=== PATIENT | female | born 1945 | race Caucasian/White ===

== ENCOUNTER 2016-09-16 05:51 | Emergency (ER) | payer OTHER ==
[2016-09-16] MEDS ORDERED: ASPIRIN PO STA (06:07)
[2016-09-16] MEDS ORDERED: NITROGLYCERIN SL ONE (06:17)
--- NOTE | 2016-09-16 06:17 | EKG Report ---
Test Performed on : 09/16/2016 06:07:15 AM Test Reason : CHEST PAIN Blood Pressure : / mmHG Vent. Rate : 094 BPM Atrial Rate : 094 BPM P-R Int : 148 ms QRS Dur : 140 ms QT Int : 386 ms P-R-T Axes : 057 022 -02 degrees QTc Int : 482 ms Normal sinus rhythm. Possible Left atrial enlargement Right bundle branch block T wave abnormality, consider inferior ischemia Abnormal ECG No previous ECGs available Unconfirmed Result
[2016-09-16] MEDS ORDERED: NITROGLYCERIN ONE (06:19)
[2016-09-16 06:20] LABS: MANUAL DIFF NEEDED? NO
[2016-09-16 06:21] LABS: BASO% 0.3 % (0.0-0.8); EOS# 0.09 X1000 (0.0-0.7); EOS% 1.4 % (0.0-10.0); HEMATOCRIT 42.1 % (37.0-47.0); HEMOGLOBIN 14.2 g/dL (12.0-16.0); LYMPH% 36.7 % (20.5-51.1); MCH 29.9 PG (27-31); MCHC 33.7 g/dL (33-37); MCV 88.6 FL (81-99); MONO# 0.57 X1000 (0.11-0.59); MONO% 9.1 % (1.7-9.3); MPV 12.5 FL (7.4-10.4); NEUT% 52.5 % (42.2-75.2); PLT 172 X1000 (130-400); RBC 4.75 XMIL (4.2-5.4)
[2016-09-16 06:37] LABS: ALBUMIN 4.4 g/dL (3.5-5.0); CALCIUM 9.8 mg/dL (8.8-10.2); MAGNESIUM 2.3 mg/dL (1.5-2.7); POTASSIUM 3.7 mmol/L (3.5-5.1); TOTAL BILIRUBIN 0.8 mg/dL (0.20-1.00)
[2016-09-16 06:55] LABS: INR 0.93 (0.86-1.15); PROTIME 12.8 Seconds (12.1-15.5)
[2016-09-16 06:56] LABS: PTT PL 40.3 Seconds (22.6-43.9)
--- NOTE | 2016-09-16 06:56 | PROVIDER DOCUMENTATION ---
HPI-Musculoskeletal Pain/Inj - GENERAL Chief Complaint: Extremity Pain Stated Complaint: ARM PAIN Time Seen by Provider: 09/16/16 06:03 Review of Systems - Adult - REVIEW OF SYSTEMS - ADULT Constitutional: reports: no symptoms reported Eyes: reports: no symptoms reported Ears, Nose, Mouth & Throat: reports: no symptoms reported Cardiovascular: reports: no symptoms reported Respiratory: reports: no symptoms reported Gastrointestinal: reports: no symptoms reported Genitourinary: reports: no symptoms reported Musculoskeletal: reports: no symptoms reported Integumentary: reports: no symptoms reported Neurological: reports: no symptoms reported Psychiatric: reports: no symptoms reported Endocrine: reports: no symptoms reported Hematologic/Lymphatic: reports: no symptoms reported Allergic/Immunologic: reports: no symptoms reported All Other Systems: Reviewed and Negative Past History - Adult - PAST MEDICAL HISTORY-ADULT Review of Records: reports: Old Records Reviewed, Nursing Assessment Review, Medications Reviewed, Social history reviewed & non-contributory. Major Childhood Illnesses: reports: denies history Cardiovascular: reports: HTN Respiratory: reports: denies history Gastrointestinal: reports: denies history Obstetrical/Gynecological: reports: ovarian cysts Genitourinary: reports: denies history Musculoskeletal: reports: denies history Neurological: reports: denies history Endocrine/Immune: reports: denies history Other Conditions: reports: denies history - PRIOR SURGERIES/PROCEDURES Surgical/Procedure History: reports: hysterectomy, BTL, other (ovarian cyst removal) - IMMUNIZATION STATUS Childhood Immunizations: See Nurse Assessment Flu Vaccine: See Nurse Assessment - FAMILY HISTORY Family History: CAD over 55 yo, other (Mother of heart attack at age 67) Physical Exam-Injury Related - Physical Exam-Injury Related Initial Vital Signs Reviewed: Yes General Appearance: appears well Immobilization?: backboard Eyes: fundi clear, no AV nicking Head, Ears, Nose, Mouth & Throat: normal ENT inspection Neck: normal inspection Respiratory: no pleuratic chest pain Cardiovascular: normal peripheral pulses Abdominal Exam: tenderness Back Exam: no vertebral tenderness Extremity: normal range of motion Departure - Departure Time of Disposition Order: 06:00 DIAGNOSIS: Arm Pain Disposition: HOME 01 Certified Medical Emergency: Emergent Condition: Stable Additional Instructions: ED Follow Up Instructions: You have been treated by a care provider in the Emergency Department. These instructions are being provided to you so you can have an understanding of how to care for yourself upon discharge. Upon discharge from the Emergency Department, you are responsible for making arrangements for follow-up care by a physician of your choice. Take all prescribed medications as directed. Return to the Emergency Department immediately for any new or worsening symptoms. You may call the Physician Referral phone number at [phone] to obtain a list of Physicians who are taking new patients. Referrals: Angel Carlin MD [Primary Care Provider] - Instructions: Musculoskeletal Pain
[2016-09-16 07:06] VITALS: BP 124/82
--- NOTE | 2016-09-16 08:26 | Diag Imaging Result Document ---
PROCEDURE NAME: CHEST-2 VIEWS - 09/16/2016 CHEST, 2 VIEWS: COMPARISON: 03/21/2015. FINDINGS: Heart size is normal. There are a couple of tiny granulomas from old granulomatous disease which appear stable. There is no consolidation, pleural effusion, or pneumothorax identified. IMPRESSION: No evidence of acute disease.
== END 2016-09-16 07:10 | disposition home or self-care (01) ==
LOC: P.ED 05:51
DX: M79.602 Pain in left arm (principal); R20.2 Paresthesia of skin; I10 Essential (primary) hypertension; Z87.42 Personal history of other diseases of the female genital tract; Z82.49 Family history of ischemic heart disease and other diseases of the circulatory system
CPT/HCPCS: 36415; 71020; 80053; 82550; 83735; 83880; 84484; 85025; 85610; 85730; 93005; 99284